=== PATIENT | female | born 1960 | race Caucasian/White ===

== ENCOUNTER → 2017-10-18 | Outpatient (CLI) | payer BC ==
[~2017-10-18] MED LIST: ALBU90OI6; ASPI81CH; AZIT250 PO; BCP; DILT240 PO; DOCU100; FLUSAL1005; Fish Oil300 MG; POTCHL10ER PO; SUMA6I; TRIHYD253A PO; VALA500
== END ==
LOC: LAB SHORT 12:03
DX: N39.0 Urinary tract infection, site not specified (principal)
CPT/HCPCS: 87077; 87086; 87186

== ENCOUNTER → 2019-05-20 | Outpatient (CLI) | payer BC | END | disposition home or self-care (01) | LOC: LAB 17:29 → LAB SHORT 17:29 | DX: N89.8 Other specified noninflammatory disorders of vagina (principal) | CPT/HCPCS: 87070; 87147; 87205 ==

== ENCOUNTER → 2019-09-05 | Outpatient (CLI) | payer BC ==
[2019-09-06 12:45] LABS: Candida species (DNA Probe) Negative (NEGATIVE); G. vaginalis (DNA Probe) Negative (NEGATIVE); T. vaginalis (DNA Probe) Negative (NEGATIVE)
== END | disposition home or self-care (01) ==
LOC: LAB SHORT 12:26 → LAB 12:26
PROVIDERS: Obstetrics & Gynecology
DX: N89.8 Other specified noninflammatory disorders of vagina (principal)
CPT/HCPCS: 87070; 87147; 87205; 87480; 87510; 87660

== ENCOUNTER → 2019-11-27 | Outpatient (CLI) | payer BC | END | disposition home or self-care (01) | LOC: LAB SHORT 14:44 → LAB 14:44 | DX: N89.8 Other specified noninflammatory disorders of vagina (principal) | CPT/HCPCS: 87070; 87147; 87184; 87205 ==

== ENCOUNTER → 2020-01-22 | Outpatient (CLI) | payer BC | END | disposition home or self-care (01) | LOC: LAB 14:11 → LAB SHORT 14:11 | DX: N89.8 Other specified noninflammatory disorders of vagina (principal) | CPT/HCPCS: 87070; 87077; 87147; 87186; 87205 ==

== ENCOUNTER → 2021-02-08 | Outpatient (CLI) | payer BC ==
[~2021-02-08] MED LIST changes: +CAND16; +LORA10ER; +ROSU5
== END ==
LOC: LAB 14:33 → LAB SHORT 14:33
DX: D48.5 Neoplasm of uncertain behavior of skin (principal)
CPT/HCPCS: 88305

== ENCOUNTER 2021-02-16 11:18 | Day surgery (SDC) | payer BC ==
[~2021-02-16] VITALS: Ht 165.1 cm; Wt 60.7 kg
[~2021-02-16 11:18] MED LIST changes: -CAND16; -LORA10ER; -ROSU5
[2021-02-16] MEDS ORDERED: CAND16 (11:28)
[2021-02-16] MEDS ORDERED: LORA10ER (11:29)
[2021-02-16] MEDS ORDERED: ROSU5 (11:30)
--- NOTE | 2021-02-16 11:38 | NUR ---
02/16/21 [place] Inez Murphy 1 TRY RIGHT HAND BLEW
== END 2021-02-16 12:40 | disposition home or self-care (01) ==
LOC: ORSCSDS 11:18
PROVIDERS: Internal Medicine Gastroenterology
PROC: 0DJD8ZZ Inspection of Lower Intestinal Tract, Via Natural or Artificial Opening Endoscopic (ICD-10-PCS; principal; 2021-02-16 12:30)
DX: Z12.11 Encounter for screening for malignant neoplasm of colon (principal); K64.8 Other hemorrhoids; J45.909 Unspecified asthma, uncomplicated; I10 Essential (primary) hypertension; Z86.010 Personal history of colon polyps; Z79.82 Long term (current) use of aspirin; Z79.899 Other long term (current) drug therapy
CPT/HCPCS: J2704

== ENCOUNTER → 2021-06-16 | Outpatient (CLI) | payer BC ==
[~2021-06-16] MED LIST changes: +CAND16; +LORA10ER; +ROSU5
[2021-06-17 16:10] LABS: HPV 16 Negative (Negative); HPV 18 Negative (Negative); HPV OTHER HR TYPES Negative (Negative)
== END ==
LOC: LAB SHORT 12:00 → LAB 12:00
PROVIDERS: Obstetrics & Gynecology
DX: Z12.4 Encounter for screening for malignant neoplasm of cervix (principal); Z88.2 Allergy status to sulfonamides; Z88.8 Allergy status to other drugs, medicaments and biological substances
CPT/HCPCS: 87624; G0123

== ENCOUNTER → 2021-08-30 | Outpatient (CLI) | payer BC | LOC: LAB SHORT 08:03 | DX: D48.5 Neoplasm of uncertain behavior of skin (principal) | CPT/HCPCS: 88305 ==

== ENCOUNTER → 2021-10-29 | Outpatient (CLI) | payer BC ==
[~2021-10-29] MED LIST changes: +ACYC400 PO; +AJOVY AUTO225 MG/1.1 SC; -ALBU90OI6; +ALBU90OI6 INH; +ALEN70 PO; +ALMOTRIPTAN M12.5 MG PO; -ASPI81CH; +ASPI81CH PO; -CAND16; +CAND16 PO; -DOCU100; +DOCU100 PO; +FLUT1DIS2 INH; +HYDROCHLOROTH12.5 MG PO; +IBUP800 PO; +OMEP20ER PO; +ONDA4ODT MM; -ROSU5; +ROSU5 PO
== END | disposition home or self-care (01) ==
LOC: LAB 14:09 → LAB SHORT 14:09
DX: N39.0 Urinary tract infection, site not specified (principal)
CPT/HCPCS: 87077; 87086; 87186

== ENCOUNTER 2022-01-10 06:45 | Day surgery (SDC) | payer BC ==
[~2022-01-10 06:45] MED LIST changes: -FLUT1DIS2 INH
[2022-01-10] MEDS ORDERED: FLUT1DIS2 INH (07:15)
--- NOTE | 2022-01-10 08:15 | NUR ---
PT ADMITTED TO [facility]. AGREES WITH PLANNED SURGERY. LUNG SOUNDS CLEAR.
--- NOTE | 2022-01-10 12:58 | NUR ---
Patient up to Ambulate independently. Gait steady. Sanjay Paws warming gown applied.Lungs clear T/O to Auscultation. Patient States Post-Procedure ride home has been arranged. Discharged via wheelchair to private car for ride home.THE PATIENT HAS NAUSEA, AND HAS ELECTED TO GO HOME WITH A PRESCRIPTION.
== END 2022-01-10 13:54 | disposition home or self-care (01) ==
LOC: ORSCMMR 06:45 → ORSCSDS 06:45
PROVIDERS: Orthopaedic Surgery
PROC: 0MBL0ZZ Excision of Right Hip Bursa and Ligament, Open Approach (ICD-10-PCS; principal; 2022-01-10 08:15)
PROC: 0LMJ0ZZ Reattachment of Right Hip Tendon, Open Approach (ICD-10-PCS; principal; 2022-01-10 08:15)
DX: S76.011A Strain of muscle, fascia and tendon of right hip, initial encounter (principal); I10 Essential (primary) hypertension; J45.909 Unspecified asthma, uncomplicated; K21.9 Gastro-esophageal reflux disease without esophagitis; E78.5 Hyperlipidemia, unspecified; Z79.899 Other long term (current) drug therapy
CPT/HCPCS: C1713; J0171; J0690; J1100; J1885; J2250; J2370; J2405; J2704; J2765; J3010; J7120

== ENCOUNTER → 2022-08-29 | Outpatient (CLI) | payer OTHER ==
[~2022-08-29] MED LIST changes: +FLUT1DIS2 INH
== END | disposition home or self-care (01) ==
LOC: PLD 08:14 → LAB SHORT 08:14
DX: C44.319 Basal cell carcinoma of skin of other parts of face (principal)
CPT/HCPCS: 88305

== ENCOUNTER 2023-05-01 07:30 | Inpatient (IN) | payer MEDICARE, OTHER ==
[2023-05-01] VITALS (15 sets, daily range): BP systolic 119–144; BP diastolic 66–93
[~2023-05-01] VITALS: Ht 157.5 cm; Wt 62.2 kg
--- NOTE | 2023-05-01 14:14 | NUR ---
05/01/23 1414 Padmini Gerard UPON ARRIVING TO OR, PATIENT RECEIVED A LEFT BRACHIAL PLEXUS NERVE BLOCK PERFORMED BY AT BEDSIDE.
--- NOTE | 2023-05-01 17:01 | NUR ---
UPON ARRIVAL TO PACU LEFT ARM ELEVATED ON 1 PILLOW CAP REFILL WNL ONCE PT WAS VERBAL SHE DID TELL ME FINGERS FEEL NUMB SHE DOES NOT WIGGLE THEM WHEN ASKED TO
--- NOTE | 2023-05-01 18:19 | NUR ---
SHIFT SUMMARY PT A&OX4, VSS/RA, MERY PO, VOIDING, AMB SBA, PAIN MANAGED. S/P L WRIST ORIF, EXT FIX W/SLING ON. WILL REPORT TO ONCOMING NOC RN.
--- NOTE | 2023-05-01 19:29 | NUR ---
DISCHARGE PT LEFT VIA WC WITH , TO GO HOME, WITH ALL PERSONAL POSSESSIONS INCLUDING DC INSTRUCTIONS AND 1 NARC SCRIPT. PT AND REP UNDERSTANDING DC INS. IV DC'D.
== END 2023-05-01 19:00 | disposition home or self-care (01) | DRG 512 ==
LOC: PRE IP 07:30 → MEDS 12:22 → SURS 17:10
PROVIDERS: ADMIT Orthopaedic Surgery
PROC: 0PSJ04Z Reposition Left Radius with Internal Fixation Device, Open Approach (ICD-10-PCS; principal; 2023-05-01 13:30)
DX: S52.572A Other intraarticular fracture of lower end of left radius, initial encounter for closed fracture (principal); S42.112A Displaced fracture of body of scapula, left shoulder, initial encounter for closed fracture; S52.612A Displaced fracture of left ulna styloid process, initial encounter for closed fracture; I10 Essential (primary) hypertension; J45.909 Unspecified asthma, uncomplicated; E78.5 Hyperlipidemia, unspecified; K21.9 Gastro-esophageal reflux disease without esophagitis; G43.909 Migraine, unspecified, not intractable, without status migrainosus; Z88.2 Allergy status to sulfonamides; Z88.8 Allergy status to other drugs, medicaments and biological substances; W11.XXXA Fall on and from ladder, initial encounter; Z79.899 Other long term (current) drug therapy; Z79.891 Long term (current) use of opiate analgesic
CPT/HCPCS: 73100; C1713; J0690; J1100; J1790; J1885; J2250; J2371; J2405; J2704; J3010; J7120

== ENCOUNTER → 2023-06-14 | Outpatient (CLI) | payer MEDICARE, OTHER ==
[~2023-06-14] MED LIST changes: +DICLOFENAC SODI50 GM TOP; +IRBESARTAN75 M3 PO; +MONT10T PO; +OXYCODONE-ACET1 EAC3 PO; +TEMAZEPAM1511 PO
== END | disposition home or self-care (01) ==
LOC: LAB SHORT 12:28 → PLD 12:28
DX: L82.0 Inflamed seborrheic keratosis (principal)
CPT/HCPCS: 88305

== ENCOUNTER 2023-06-19 05:50 | Day surgery (SDC) | payer MEDICARE, OTHER ==
[~2023-06-19] VITALS: Ht 164 cm; Wt 60.0 kg
[~2023-06-19 05:50] MED LIST changes: -DICLOFENAC SODI50 GM TOP; -IRBESARTAN75 M3 PO; -MONT10T PO; -OXYCODONE-ACET1 EAC3 PO; -TEMAZEPAM1511 PO
[2023-06-19 06:33] VITALS: BP 140/89
[2023-06-19] MEDS ORDERED: IRBESARTAN75 M3 PO (06:55)
[2023-06-19] MEDS ORDERED: TEMAZEPAM1511 PO (06:56)
[2023-06-19] MEDS ORDERED: MONT10T PO (06:56)
[2023-06-19] MEDS ORDERED: OXYCODONE-ACET1 EAC3 PO (06:57)
[2023-06-19] MEDS ORDERED: DICLOFENAC SODI50 GM TOP (06:57)
--- NOTE | 2023-06-19 07:01 | NUR ---
History, Chart, Medications and Allergies reviewed before start of procedure. Ambulatory in Day Surgery. Pre-Op teaching done. Pt verbalizes understanding. Patient confirms NPO status and agrees with scheduled surgery. Patient reports completing Chlorhexadine shower X2 prior to admission to hospital. Lungs clear T/O to Auscultation. Patient States Post-Procedure ride home has been arranged.
[2023-06-19 07:54] VITALS: BP 112/74
[2023-06-19 08:00] VITALS: BP 113/83
--- NOTE | 2023-06-19 08:02 | NUR ---
0754 REPORT RECEIVED FROM STEWART DUARTE. VSS. PT O2 SATURATIONS 100% ON 8L SUPPLEMENTAL O2 VIA NONREBREATHER. PT SITTING UP, EYES CLOSED. ICE PACKS PROVIDED TO L WRIST. PT HAS XEROFOM, 4X4S AND RYAN WRAP DRESSING TO L WRIST THAT IS C/D/I. PT HAS BRISK CAPILLARY REFILL. PT DENIES PAIN, NAUSEA, OR OTHER DISCOMFORTS AT THIS TIME.
[2023-06-19 08:15] VITALS: BP 134/90
[2023-06-19 08:30] VITALS: BP 138/93
[2023-06-19 08:46] VITALS: BP 136/86
--- NOTE | 2023-06-19 08:59 | NUR ---
Patient up to Ambulate independently. Gait steady. VSS AND CONSISTENT WITH PT BASELINE. XRAYS ORDERED COMPLETED. PT DENIES PAIN, NAUSEA OR OTHER DISCOMFORTS. PT VERBALIZES THE READINESS TO GO HOME. Discharge instructions reviewed with patient AND HER SPOUSE. Patient AND SPOUSE verbalize understanding. Copy given to patient to take home. Dressing to procedure site clean, dry, intact with no visible drainage, swelling, erythema or bruising noted. PT HAS BRISK CAPILLARY REFILL. Patient States Post-Procedure ride home has been arranged. Discharged via wheelchair to private car for ride home. PT BELONGINGS RETURNED TO PT.
== END 2023-06-19 09:03 | disposition home or self-care (01) ==
LOC: ORSCMMR 05:50 → ORD 07:30 → ORSCMMR 09:03
PROVIDERS: Orthopaedic Surgery
PROC: 2W5 Placement, Anatomical Regions, Removal (ICD-10-PCS; principal; 2023-06-19 07:30)
DX: S52.532A Colles' fracture of left radius, initial encounter for closed fracture (principal); J45.909 Unspecified asthma, uncomplicated; I10 Essential (primary) hypertension; E78.5 Hyperlipidemia, unspecified; Z79.899 Other long term (current) drug therapy
CPT/HCPCS: 73100; J2250; J2405; J2704; J3010; J7120